=== PATIENT | male | born 1975 | race Caucasian/White ===

== ENCOUNTER → 2020-05-05 | Outpatient (CLI) | payer BC ==
[2020-05-05] VITALS (17 sets, daily range): BP systolic 103–131; BP diastolic 69–93
== END | disposition home or self-care (01) ==
LOC: CARD DIAG 09:54
PROVIDERS: ATTEND Internal Medicine Cardiovascular Disease
DX: R55 Syncope and collapse (principal)
CPT/HCPCS: 93660

== ENCOUNTER 2020-06-27 09:05 | Day surgery (SDC) | payer BC ==
[~2020-06-27] VITALS: Ht 177.8 cm; Wt 100.8 kg
[2020-06-27] VITALS (8 sets, daily range): BP systolic 104–121; BP diastolic 65–80
[2020-06-27] MEDS ORDERED: normal saline 1000ml 1,000 ML IV ONE (09:20)
[2020-06-27] MEDS ORDERED: ceFAZolin inj. 2,000 MG in normal saline 100ml IV soln 100 ML IV ONE (09:25)
[2020-06-27] MEDS ORDERED: VANCOMYCIN 1,500MG inj. 1,500 MG in normal saline 500ml IV soln 300 ML IV ONE (09:25)
[2020-06-27] MEDS ORDERED: ceFAZolin 2gm in dextrose, iso 50 ML IV ONE ×2 (09:35→10:24)
[2020-06-27] MEDS ORDERED: VALA500T PO (09:58)
[2020-06-27] MEDS ORDERED: midazolam 2 mg/2 ml injection ONE ×2 (10:05→10:32)
[2020-06-27] MEDS ORDERED: fentaNYL/PF 50MCG/1 ML 2ML syringe ONE (10:06)
[2020-06-27] MEDS ORDERED: LIDOcaine 1% W/epiNEPHrine 1:100,000 20ml vial ONE (10:06)
[2020-06-27 10:13] LABS: BASOPHILS % (AUTO) 0.8 % (0-1); EOSINOPHILS # (AUTO) 0.2 X10'3 (0-0.9); EOSINOPHILS % (AUTO) 4.1 % (0-6); HEMATOCRIT 45.7 % (42.0-52.0); HEMOGLOBIN 15.3 g/dl (14.0-17.9); LYMPHOCYTES # (AUTO) 1.1 X10'3 (1.1-4.8); LYMPHOCYTES % (AUTO) 22.9 % (21-51); MEAN CORPUSCULAR HEMOGLOBIN 30.1 PG (27.0-31.0); MEAN CORPUSCULAR HGB CONC 33.4 g/dL (33.0-36.5); MEAN CORPUSCULAR VOLUME 90.2 FL (78-98); MEAN PLATELET VOLUME 10.4 FL (7.4-10.4); MONOCYTES # (AUTO) 0.5 X10'3 (0-0.9); MONOCYTES % (AUTO) 10.6 % (2-12); NEUTROPHILS # (AUTO) 2.9 X10'3 (1.8-7.7); NEUTROPHILS % (AUTO) 61.6 % (42-75); PLATELET COUNT 155 X10'3 (140-440); RED BLOOD COUNT 5.06 X10'6 (4.70-6.10); WHITE BLOOD COUNT 4.7 X10'3 (4.5-11.0)
[2020-06-27 10:15] LABS: ALBUMIN 3.9 G/DL (3.4-5.0); ANION GAP 5 (8-16); BLOOD UREA NITROGEN 22 MG/DL (7-18); CHLORIDE 108 MMOL/L (99-107); CREATININE 1.05 MG/DL (0.60-1.10); GLUCOSE 96 MG/DL (70-104); MAGNESIUM 2.1 MG/DL (1.5-2.4); POTASSIUM 3.9 MMOL/L (3.5-5.1); SODIUM 141 MMOL/L (135-145); TOTAL CARBON DIOXIDE 27.8 MMOL/L (24-32); eGFR 76 ML/MIN
== END 2020-06-27 13:06 | disposition home or self-care (01) ==
LOC: SSTAY O 09:05
PROVIDERS: ATTEND Internal Medicine Cardiovascular Disease
DX: R55 Syncope and collapse (principal)
CPT/HCPCS: 33285; 36415; 80048; 83735; 85025; 85610; 93005; 99152; C1764; J2250; J3010; A4620; A6258; A6449